=== PATIENT | female | born 1990 | race African-American/Black ===

== ENCOUNTER 2023-03-28 09:27 | Emergency (ER) | payer OTHER ==
[2023-03-28 09:49] VITALS: BP 130/73; PULSE 73; RESP 16; TEMP 99.7; BMI 52.1
[2023-03-28] MEDS ORDERED: IBUPROFEN 400 MG TABLET (FP) PO ONE ×2 (09:59→10:13)
== END 2023-03-28 11:45 | disposition home or self-care (01) ==
LOC: FER 09:27
DX: M25.561 Pain in right knee (principal); M25.461 Effusion, right knee
CPT/HCPCS: 73562-TC-RT-FY; 81025; 93971-TC; 99285-25